=== PATIENT | male | born 1960 | race Caucasian/White ===

== ENCOUNTER 2017-07-03 19:06 | Emergency (ER) | payer BC, OTHER ==
[2017-07-03 19:41] VITALS: BP 131/86
[2017-07-03] MEDS ORDERED: Diphtheria,Pertussis(Acell),Tetanus Vaccine 0.5 ML SDV IM ONE (19:57)
--- NOTE | 2017-07-03 20:00 | EDM.PDOC ---
[id number]: FISH HOOK Time Seen by Provider: 07/03/17 19:43 Source of Information: Reports: Patient History Limitations: Reports: No Limitations - History of Present Illness INITIAL COMMENTS - FREE TEXT/NARRATIVE: 57 yo male presents with fish hook in right palm. needs up date on tetanus. generally healthy Left Hand Pain Score (Numeric/FACES): 1 - Related Data Allergies Allergy/AdvReac Type Severity Reaction Status Date / Time Penicillins Allergy Cannot Verified 07/03/17 19:36 Remember Home Meds: Home Meds NK [No Known Home Meds] 08/21/14 [History] Past Medical History HEENT History: Reports: Impaired Vision - Infectious Disease History Infectious Disease History: Reports: Chicken Pox Social & Family History - Tobacco Use Smoking Status *Q: Never Smoker Second Hand Smoke Exposure: No - Caffeine Use Caffeine Use: Reports: Coffee, Energy Drinks, Soda - Alcohol Use Days Per Week of Alcohol Use: 0 - Recreational Drug Use Recreational Drug Use: No ED ROS GENERAL - Review of Systems Review Of Systems: See Below Constitutional: Denies: Fever, Chills Respiratory: Denies: Shortness of Breath, Wheezing Cardiovascular: Denies: Chest Pain ED EXAM, SKIN/RASH Exam: See Below Exam Limited By: No Limitations General Appearance: Alert, WD/WN, No Apparent Distress Respiratory/Chest: No Respiratory Distress Skin: Other (fish hook in right palm) Course - Vital Signs Last Recorded V/S: Last Vital Signs Temp 36.1 C 07/03/17 19:40 Pulse 69 07/03/17 19:40 Resp 16 07/03/17 19:40 BP 131/86 07/03/17 19:40 Pulse Ox 96 07/03/17 19:40 - Orders/Labs/Meds Orders: Active Orders 24 hr Category Date Time Status Vaccines to be Administered [RC] PER UNIT ROUTINE Care 07/03/17 19:57 Active Meds: Medications Discontinued Medications Generic Name Dose Route Start Last Admin Trade Name Freq PRN Reason Stop Dose Admin Diphtheria/Tetanus/Acell Pertussis 0.5 ml 07/03/17 19:57 07/03/17 20:09 Adacel IM 07/03/17 19:58 0.5 ml .ONCE ONE Administration Lidocaine HCl 5 ml 07/03/17 19:44 07/03/17 19:47 Xylocaine-Mpf 1% INJECT 07/03/17 19:45 5 ml ONETIME ONE Administration - Re-Assessments/Exams Free Text/Narrative Re-Assessment/Exam: 07/03/17 20:41 area around hook cleaned with alcohol and infiltrated with 3 cc of 1% lidocaine. hook removed without difficulty. wound washed with soapy water. pt tolerated well Departure - Departure Time of Disposition: 19:59 Disposition: Home, Self-Care 01 Condition: Good Clinical Impression: Fish hook injury of hand Qualifiers: Encounter type: initial encounter Laterality: right Qualified Code(s): S69.91XA - Unspecified injury of right wrist, hand and finger(s), initial encounter - Discharge Information Instructions: Puncture Wound Referrals: Micheal Prakash MD [Primary Care Provider] - Forms: ED Department Discharge Additional Instructions: wash with warm soapy water observe for signs of infection - My Orders Last 24 Hours: My Active Orders 07/03/17 19:57 Vaccines to be Administered [RC] PER UNIT ROUTINE - Assessment/Plan Last 24 Hours: My Active Orders 07/03/17 19:57 Vaccines to be Administered [RC] PER UNIT ROUTINE
== END 2017-07-03 20:18 | disposition home or self-care (01) ==
LOC: JP.ED 19:06
DX: S60.551A Superficial foreign body of right hand, initial encounter (principal); Z23 Encounter for immunization; Z88.0 Allergy status to penicillin; W45.8XXA Other foreign body or object entering through skin, initial encounter
CPT/HCPCS: 90471; 90715; 99283-25